=== PATIENT | female | born 1960 | race Caucasian/White ===

== ENCOUNTER → 2018-05-07 | Day surgery (SDC) | payer OTHER ==
--- NOTE | 2018-05-08 15:34 | PATH ---
Surgical Pathology Report Patient Name: ELIZABETH HAILE [facility]. Rec. #: [id number] /Age/Gender: 1960 (Age: 57) / F Account: [id number] Location: [facility] Taken: 05/07/2018 Received: 05/07/2018 Reported: 05/08/2018 Physicians: Michael Bridges M.D. Specimen(s) Received RIGHT BREAST SPECIMEM WITH DENSITY Clinical History Nonpalpable lesion Mammographic findings: Suspicious Final Diagnosis BREAST, RIGHT, WITH DENSITY, STEREOTACTIC BIOPSY: BENIGN BREAST TISSUE SHOWING FIBROADENOMA. Electronically Signed Purvi Ibrahim M.D. Gross Description Received in formalin labeled "right breast with density," is a 2.8 x 2.2 x 0.3 cm aggregate of multiple corado-yellow, irregular to cylindrical portions of fibroadipose tissue. The formalin is filtered and the specimen is entirely submitted in one cassette. Time to formalin fixation: 5 minutes Total formalin fixation time: Approximately 8 hours. /05/07/2018 [facility]05/07/2018
== END | disposition home or self-care (01) ==
LOC: FMAMMOTONE 08:41 → EDSTATUS 09:00
PROVIDERS: ATTEND Surgery Surgical Oncology
PROC: 0HBT3ZX Excision of Right Breast, Percutaneous Approach, Diagnostic (ICD-10-PCS; principal; 2018-05-07)
DX: D24.1 Benign neoplasm of right breast (principal)
CPT/HCPCS: 19081; 88305-TC; A4648